=== PATIENT | male | born 1965 | race Caucasian/White ===

== ENCOUNTER → 2017-12-27 | Outpatient (CLI) | payer SELFPAY ==
[2017-12-27 22:15] LABS: MICROALBUMIN, RANDOM URINE <12.0 ug/mL (Not Estab.)
[2017-12-28 02:17] LABS: HEMOGLOBIN A1C 6.4 % (4.8-5.6)
== END | disposition home or self-care (01) ==
LOC: LAB 10:36
DX: E11.9 Type 2 diabetes mellitus without complications (principal)
CPT/HCPCS: 36415; 82043; 83036